=== PATIENT | female | born 1980 | race Caucasian/White ===

== ENCOUNTER → 2019-02-12 | Outpatient (CLI) | payer OTHER ==
[~2019-02-12] MED LIST: ACETAMINOPHEN-1 EAC1 PO; ACYCLOVIR 200200 MG PO; AMITRIPTYLINE H10 M3; FLEXERIL PO; MECLIZINE HCL25 M1 PO; PRISTIQ50 M1 PO; VENLAFAXINE HC150 M1
== END ==
LOC: M.RAD 14:53
DX: Z12.31 Encounter for screening mammogram for malignant neoplasm of breast (principal)

== ENCOUNTER → 2020-06-05 | Outpatient (CLI) | payer OTHER | LOC: M.RAD 06-02 14:46 | PROVIDERS: ATTEND Nurse Practitioner Family | DX: R92.2 Inconclusive mammogram (principal); N63.21 Unspecified lump in the left breast, upper outer quadrant ==